=== PATIENT | male | born 1950 | race Caucasian/White ===

== ENCOUNTER 2022-07-25 17:00 | Emergency (ER) | payer OTHER, MEDICARE | END 2022-07-25 18:13 | disposition home or self-care (01) | LOC: JP.ED 17:00 | DX: S06.0XAA Concussion with loss of consciousness status unknown, initial encounter (principal); S00.01XA Abrasion of scalp, initial encounter; I10 Essential (primary) hypertension; F17.210 Nicotine dependence, cigarettes, uncomplicated; Z79.899 Other long term (current) drug therapy; W19.XXXA Unspecified fall, initial encounter | CPT/HCPCS: 70450; 99284 ==

== ENCOUNTER 2025-02-13 16:09 | Emergency (ER) | payer OTHER, MEDICARE ==
[2025-02-13] MEDS: Lidocaine/Epineph/Tetracaine 3 ML Syringe TOP ONE (16:39)
== END 2025-02-13 18:21 | disposition home or self-care (01) ==
LOC: JP.ED 16:09
DX: S01.81XA Laceration without foreign body of other part of head, initial encounter (principal); I10 Essential (primary) hypertension; Z79.899 Other long term (current) drug therapy; W22.8XXA Striking against or struck by other objects, initial encounter; Y93.89 Activity, other specified
CPT/HCPCS: 12011; 70450; 73140; 99282; 99284; A9270